=== PATIENT | female | born 1975 | race Caucasian/White ===

== ENCOUNTER 2017-01-12 22:33 | Emergency (ER) | payer OTHER ==
[~2017-01-12] VITALS: Ht 160 cm; Wt 92.9 kg
[2017-01-12 22:37] VITALS: TEMP 36.9; Ht 160 cm; Wt 92.9 kg
[2017-01-12] MEDS ORDERED: HYDROmorphone INJ 1 MG/ML SYR IV STA (23:16)
[2017-01-12] MEDS ORDERED: DULO60CA44 PO (23:30)
[2017-01-12] MEDS ORDERED: ABL/15 PO (23:30)
[2017-01-12] MEDS ORDERED: CLR10 PO (23:30)
[2017-01-12] MEDS ORDERED: ALPR-411 PO (23:31)
[2017-01-12] MEDS ORDERED: ZOLP10TA PO (23:31)
[2017-01-12] MEDS ORDERED: BUSP15TA70 PO (23:31)
[2017-01-12] MEDS ORDERED: GABA-112 PO (23:31)
[2017-01-12] MEDS ORDERED: MONT1TAB3 PO (23:31)
--- NOTE | 2017-01-12 23:43 | EMERGENCY ROOM VISIT NOTE ---
History Report prepared by Drake: Li Calloway Under the Supervision of: Dr. Kathe Swanson D.O. First contact with patient: 23:07 Chief Complaint: VAGINAL BLEEDING Stated Complaint: VAGINAL BLEED History of Present Illness The patient is a 41 year old female who presents to the Emergency Room with complaints of constant vaginal bleeding beginning 1 week ago. The patient states that she is on her 4th treatment of chemotherapy for breast cancer and she has it every 3 weeks. She reports that she had a lumpectomy and has a port. She notes that she was diagnosed with a fibroid in her uterus 1 week ago after experiencing abdominal pain and receiving an ultrasound. The patient reports that when her vaginal bleeding began she was told to follow up with a scale assembly set up worker but the closest appointment was not until this coming . She states that she had her last period on December 27 and it is always regular. Now she notes that she is going through a tampon an hour. The patient notes that she was prescribed Vicodin for pain 5 days ago when she was seen and was given enough for 3 days. She states that today she took the last one. She complains of lower abdominal cramping, leg swelling, and weakness. The patient denies any lightheadedness.She reports that she is on Abilify, Cymbalta, an Xanax that she took today for major depression, anxiety, and, PTSD Source of History: patient Onset: 1 week ago Position: other (vaginal) Symptom Intensity: 1 tampon an hour Quality: other (bleeding) Timing: constant Associated Symptoms: + abdominal pain, + weakness Note: She complains of leg swelling. The patient denies any lightheadedness Review of Systems See HPI for pertinent positives & negatives. A total of 10 systems reviewed and were otherwise negative. Past Medical & Surgical Medical Problems: (1) Breast cancer (2) History of posttraumatic stress disorder (PTSD) (3) Hx of major depression Family History No pertinent family history stated. Social History Smoking Status: Current Every Day Smoker Marital Status: Housing Status: lives with significant other Current/Historical Medications Scheduled Aripiprazole (Abilify), 15 MG PO QAM Buspirone Hcl (Buspar), 15 MG PO TIDM Duloxetine Hcl (Cymbalta), 60 MG PO QAM Gabapentin (Neurontin), 400 MG PO HS Loratadine (Claritin), 10 MG PO QAM Montelukast Sodium (Singulair), 10 MG PO HS Zolpidem Tartrate (Ambien), 10 MG PO HS Scheduled PRN Alprazolam (Xanax), 0.5 MG PO TID PRN for Anxiety Allergies Coded Allergies: Chlorpromazine (Verified Allergy, Unknown, PSYCHIATRIC COMPLICATIONS, 01/12) Haloperidol (Verified Allergy, Unknown, PSYCHIATRIC COMPLICATIONS, 01/12/17 ) Ibuprofen (Verified Allergy, Unknown, GI SYMPTOMS, 01/12/17) [place] (Verified Allergy, Unknown, PSYCHIATRIC COMPLICATIONS, 01/12/17) Metronidazole (Verified Allergy, Unknown, HIVES, 01/12/17) NSAIDs (Verified Allergy, Unknown, GI SYMPTOMS, 01/12/17) Physical Exam Vital Signs Date Time Temp Pulse Resp B/P Pulse Ox O2 Delivery O2 Flow Rate FiO2 01/13/17 01:45 73 18 149/86 100 Room Air 01/13/17 00:19 80 18 139/102 100 Room Air 01/12/17 22:37 36.9 84 18 156/102 98 Room Air Physical Exam HEENT: Head - normocephalic and atraumatic Pupils are equal, round, and reactive to light. Extraocular eye muscles are intact, and sclera are anicteric. Nose - moist nasal mucosa without discharge. Mouth - moist buccal mucosa. Oropharynx is nonerythematous and there is no tonsillar exudate or edema noted. Neck: Supple; no JVD, nuchal rigidity, cervical lymphadenopathy. Heart: Regular rate and rhythm. There is a normal S1 and S2 with no murmurs, clicks, or gallops appreciated. Lungs: Clear to auscultation bilaterally with no wheezes, rales, or rhonchi. Abdomen: Soft, suprapubic tenderness with palpation, nondistended, with good bowel sounds. There are no palpable pulsatile masses or hepatosplenomegaly. There is no guarding, rigidity, or rebound noted. Extremities: No evidence of cyanosis, clubbing, or edema. There are easily palpable peripheral pulses. Skin: warm and dry with good turgor and no rashes. Pelvic: On speculum exam, the cervical os was closed. The cervix was healthy- appearing. There is a very small amount of dark blood in the vaginal canal. Medical Decision & Procedures ER Provider Diagnostic Interpretation: US results as stated below per my review and radiologist interpretation: US PELVIS/ENDOVAG: The uterus is normal in size. The endometrium is normal in thickness. No evidence of uterine fibroid. The left ovary is normal in size, blood flow, and appearance. The right ovary is not visualized, by history, surgically absent. No free fluid in the pelvis. Laboratory Results 01/13/17 00:10 Red Blood Count 3.80, Mean Corpuscular Volume 82.9, Mean Corpuscular Hemoglobin 27.9, Mean Corpuscular Hemoglobin Concent 33.7, Mean Platelet Volume 8.2, Neutrophils (%) (Auto) 49.3, Lymphocytes (%) (Auto) 30.0, Monocytes (%) (Auto) 19.0, Eosinophils (%) (Auto) 0.2, Basophils (%) (Auto) 1.1, Neutrophils # (Auto ) 2.33, Lymphocytes # (Auto) 1.42, Monocytes # (Auto) 0.90, Eosinophils # (Auto ) 0.01, Basophils # (Auto) 0.05 01/13/17 00:10 Test 01/12/17 23:35 01/13/17 00:10 Urine Color YELLOW Urine Appearance CLEAR (CLEAR) Urine pH 5.0 (4.5-7.5) Urine Specific [place] 1.005 (1.000-1.030) Urine Protein NEG (NEG) Urine Glucose (UA) NEG (NEG) Urine Ketones NEG (NEG) Urine Occult Blood 1+ (NEG) Urine Nitrite NEG (NEG) Urine Bilirubin NEG (NEG) Urine Urobilinogen NEG (NEG) Urine Leukocyte Esterase NEG (NEG) Urine WBC (Auto) 0 /hpf (0-5) Urine RBC (Auto) 0-4 /hpf (0-4) Urine Hyaline Casts (Auto) 0 /lpf (0-5) Urine Epithelial Cells (Auto) 5-10 /lpf (0-5) Urine Bacteria (Auto) NEG (NEG) White Blood Count 4.73 K/uL (4.8-10.8) Red Blood Count 3.80 M/uL (4.2-5.4) Hemoglobin 10.6 g/dL (12.0-16.0) Hematocrit 31.5 % (37-47) Mean Corpuscular Volume 82.9 fL (80-100) Mean Corpuscular Hemoglobin 27.9 pg (25-34) Mean Corpuscular Hemoglobin Concent 33.7 g/dl (32-36) Platelet Count 301 K/uL (130-400) Mean Platelet Volume 8.2 fL (7.4-10.4) Neutrophils (%) (Auto) 49.3 % Lymphocytes (%) (Auto) 30.0 % Monocytes (%) (Auto) 19.0 % Eosinophils (%) (Auto) 0.2 % Basophils (%) (Auto) 1.1 % Neutrophils # (Auto) 2.33 K/uL (1.4-6.5) Lymphocytes # (Auto) 1.42 K/uL (1.2-3.4) Monocytes # (Auto) 0.90 K/uL (0.11-0.59) Eosinophils # (Auto) 0.01 K/uL (0-0.5) Basophils # (Auto) 0.05 K/uL (0-0.2) RDW Standard Deviation 62.0 fL (36.4-46.3) RDW Coefficient of Variation 20.7 % (11.5-14.5) Immature Granulocyte % (Auto) 0.4 % Immature Granulocyte # (Auto) 0.02 K/uL (0.00-0.02) Toxic Granulation 1+ Anisocytosis PRESENT Tear Drop Cells 1+ Anion Gap 8.0 mmol/L (3-11) Est Creatinine Clear Calc Drug Dose 110.6 ml/min Estimated GFR () 120.9 Estimated GFR (Non- 104.3 BUN/Creatinine Ratio 5.5 (10-20) Calcium Level 9.0 mg/dl (8.5-10.1) Total Bilirubin 0.5 mg/dl (0.2-1) Direct Bilirubin 0.1 mg/dl (0-0.2) Aspartate Amino Transf (AST/SGOT) 24 U/L (15-37) Alanine Aminotransferase (ALT/SGPT) 27 U/L (12-78) Alkaline Phosphatase 123 U/L (45-117) Total Protein 7.3 gm/dl (6.4-8.2) Albumin 3.9 gm/dl (3.4-5.0) Laboratory results per my review. Medications Administered Medications (Trade) Dose Ordered Sig/[place]ena Route Start Time Stop Time Status Last Admin Dose Admin Hydromorphone HCl (Dilaudid Inj) 1 mg NOW STAT IV 01/12/17 23:16 01/12/17 23:17 DC 01/13/17 00:17 1 MG Heparin Sodium (Porcine) (Heparin 100 Unit/ml 5ml Flush) 5 ml STK-MED ONCE .ROUTE 01/13/17 02:06 01/13/17 02:09 DC 01/13/17 02:15 5 ML Procedure 2316: Dilaudid Inj 1mg IV. 0206: Heparin Sodium (Porcine) 5ml IV. ED Course 2307: Past medical records reviewed. The patient was evaluated in room C8. A complete history and physical exam was performed. Her port was accessed. Labs are drawn as above. 2316: Dilaudid Inj 1mg IV. The patient went for a pelvic ultrasound as described above. 0201: I performed a pelvic exam. 0214: Upon reevaluation, the patient is doing well. I discussed findings and results with the patient. She verbalized agreement of the treatment plan. The patient was discharged home. Medical Decision This is a 41-year-old female patient who presents to the emergency department with vaginal bleeding and pelvic pain. Differential diagnoses include bleeding fibroid, pelvic pain, dysfunctional uterine bleeding, anemia, drug seeking behavior, and ectopic . LABS: Glucose 102 Normal Renal Function Normal LFTs Urine is positive for blood WBC 4.7 Hemoglobin 10.6 The patient believed that she had been diagnosed just recently with a uterine fibroid and presents tonight with some abnormal uterine bleeding. Ultrasound as interpreted by stat rad revealed no evidence of uterine fibroid. On physical exam/pelvic exam, there was no significant vaginal bleeding. I have asked the patient follow up with her PCP if the vaginal bleeding or pelvic pain persists. [place] Drug Monitoring Program Search Results: patient reviewed within database Drug Monitoring Findings: PDMP correlates with what was stated by the patient. Impression Primary Impression: Pelvic pain Additional Impression: Abnormal vaginal bleeding Scribe Attestation The scribe's documentation has been prepared under my direction and personally reviewed by me in its entirety. I confirm that the note above accurately reflects all work, treatment, procedures, and medical decision making performed by me. Departure Information Dispostion Home / Self-Care Referrals No Doctor, Assigned (PCP) Forms HOME CARE DOCUMENTATION FORM, IMPORTANT VISIT INFORMATION, WORK / SCHOOL INSTRUCTIONS Patient Instructions ED Pelvic Pain Thu [facility] Additional Instructions Rest. Follow up with your doctor if bleeding or pain persists Problem Qualifiers
[2017-01-12 23:52] LABS: URINE APPEARANCE CLEAR (CLEAR); URINE BILIRUBIN NEG (NEG); URINE COLOR YELLOW; URINE NITRITE NEG (NEG); URINE SPECIFIC GRAVITY 1.005 (1.000-1.030); UROBILINOGEN NEG (NEG)
[2017-01-13 00:05] LABS: MANUAL MICROSCOPIC REQUIRED? NO; REVIEW REQ? NO
[2017-01-13 00:17] LABS: BASO % 1.1 %; BASO ABS # 0.05 K/uL (0-0.2); EOS % 0.2 %; HEMATOCRIT 31.5 % (37-47); IG% 0.4 %; LYMPH ABS # 1.42 K/uL (1.2-3.4); MEAN CELL VOLUME 82.9 fL (80-100); MEAN CORPUSCULAR HEMOGLOBIN 27.9 pg (25-34); MEAN CORPUSCULAR HGB CONC 33.7 g/dl (32-36); MEAN PLATELET VOLUME 8.2 fL (7.4-10.4); NEUT % 49.3 %; PLATELET COUNT 301 K/uL (130-400); WHITE BLOOD COUNT 4.73 K/uL (4.8-10.8)
[2017-01-13 00:40] LABS: BUN/CREATININE RATIO 5.5 (10-20); CREATININE 0.71 mg/dl (0.60-1.20); POTASSIUM 3.9 mmol/L (3.5-5.1)
[2017-01-13 00:48] LABS: ANISOCYTOSIS PRESENT; COMPLETE YES; TEAR DROP CELLS 1+; TOXIC GRANULATION 1+
[2017-01-13 01:45] VITALS: BP 149/86; PULSE 73; O2SAT 100
--- NOTE | 2017-01-13 07:37 | DIAGNOSTIC IMAGING REPORT ---
PELVIC ULTRASOUND CLINICAL HISTORY: Pelvic pain. Vaginal bleeding. Evaluate for fibroid. COMPARISON STUDY: None. TECHNIQUE: Transabdominal and transvaginal sonography of the pelvis was performed. FINDINGS: This exam was compromised by suboptimal penetration. The uterus measures 11.2 x 5.1 x 7.1 cm. Endometrium measures 7 mm in thickness. No fibroid was identified by sonography. The left ovary measures 3.2 x 1.6 x 1.3 cm. Color flow is identified within the left ovary. The right ovary was not visualized. By history, the right ovary is surgically absent. There was no free fluid. IMPRESSION: 1. Unremarkable sonographic appearance of the uterus and left ovary. 2. Right ovary not visualized. By report, the right ovary is surgically absent. 3. Study mildly compromised by suboptimal penetration. Electronically signed by: Tommy Bradshaw M.D. 01/13/2017 7:36 AM Dictated Date/Time: 01/13/2017 7:34 AM
== END 2017-01-13 02:15 | disposition home or self-care (01) ==
LOC: C.EDB 22:35 → C.EDC 01-13 02:15
DX: N93.9 Abnormal uterine and vaginal bleeding, unspecified (principal); R10.2 Pelvic and perineal pain; C50.919 Malignant neoplasm of unspecified site of unspecified female breast; Z79.899 Other long term (current) drug therapy; F32.9 Major depressive disorder, single episode, unspecified; F41.9 Anxiety disorder, unspecified; F43.10 Post-traumatic stress disorder, unspecified; F17.210 Nicotine dependence, cigarettes, uncomplicated